=== PATIENT | male | born 1995 | race Caucasian/White ===

== ENCOUNTER 2018-04-24 01:00 | Emergency (ER) | payer MEDICAID ==
[~2018-04-24] VITALS: Ht 167.6 cm; Wt 70.3 kg
[2018-04-24 01:06] VITALS: BP_SYST 126
[2018-04-24 01:19] LABS: BILIRUBIN,URINE NEGATIVE (NEGATIVE); BLOOD, URINE 3+ (NEGATIVE); CLARITY/URINE CLOUDY (CLEAR); COLOR,URINE YELLOW (YELLOW); GLUCOSE,URINE NEGATIVE (NEGATIVE); KETONES,URINE NEGATIVE (NEGATIVE); LEUKOCYTE ESTERASE ,URINE NEGATIVE (NEGATIVE); NITRITE, URINE NEGATIVE (NEGATIVE); PROTEIN URINE NEGATIVE (NEGATIVE)
[2018-04-24 01:28] LABS: UROBILINOGEN,URINE >=8 (0.2-1.0)
[2018-04-24 01:38] LABS: RBC,URINE >100 /HPF (0-3)
[2018-04-24 01:40] LABS: BACTERIA,URINE FEW /HPF (None Seen); MUCUS,URINE None Seen /LPF (None Seen); URINE AMORPHOUS PHOSPHATES 2+ /HPF (None Seen); WBC,URINE 0-3 /HPF (0-3)
[2018-04-24 02:30] VITALS: BP_SYST 117
[2018-04-24] MEDS ORDERED: SULFAMETHOXAZOLE/TRIMETHOPR DS 1 TABLET PO ONE (02:30)
== END 2018-04-24 02:30 | disposition home or self-care (01) ==
LOC: SED 01:00
DX: R10.9 Unspecified abdominal pain (principal); R31.9 Hematuria, unspecified
CPT/HCPCS: 81000-TC; 87086; 99285

== ENCOUNTER 2018-09-24 20:26 | Emergency (ER) | payer MEDICAID ==
[~2018-09-24] VITALS: Ht 167.6 cm; Wt 70.3 kg
[2018-09-24 20:47] VITALS: BP_SYST 124
[2018-09-24] MEDS ORDERED: DIPH-TET-PERTUS Vaccine 0.5 ML VIAL (ADACEL) I.M. ONE (21:15)
[2018-09-24 22:02] VITALS: BP_SYST 118
== END 2018-09-24 22:02 | disposition home or self-care (01) ==
LOC: SED 20:26
DX: S61.210A Laceration without foreign body of right index finger without damage to nail, initial encounter (principal); W25.XXXA Contact with sharp glass, initial encounter; Y93.89 Activity, other specified; Y92.89 Other specified places as the place of occurrence of the external cause; Y99.8 Other external cause status
CPT/HCPCS: 73140-TC; 90715; 99284

== ENCOUNTER 2018-10-09 23:09 | Emergency (ER) | payer MEDICAID ==
[~2018-10-09] VITALS: Ht 167.6 cm; Wt 70.3 kg
[2018-10-09 23:28] VITALS: BP_SYST 114
[2018-10-10] MEDS ORDERED: HYDROcodone/ACETAMIN 5-325 MG TAB (NORCO/ VICODIN) PO ONE (00:15)
[2018-10-10 00:57] VITALS: BP_SYST 125
== END 2018-10-10 00:57 | disposition home or self-care (01) ==
LOC: SED 23:09
DX: S70.11XA Contusion of right thigh, initial encounter (principal); G43.909 Migraine, unspecified, not intractable, without status migrainosus; Z90.49 Acquired absence of other specified parts of digestive tract; W19.XXXA Unspecified fall, initial encounter; Y93.89 Activity, other specified; Y92.69 Other specified industrial and construction area as the place of occurrence of the external cause; Y99.8 Other external cause status
CPT/HCPCS: 73552; 99283

== ENCOUNTER 2022-06-26 06:57 | Emergency (ER) | payer SELFPAY ==
[~2022-06-26] VITALS: Ht 170.2 cm; Wt 72.6 kg
[2022-06-26 07:15] VITALS: BP_SYST 124
--- NOTE | 2022-06-26 07:15 | NUR ---
Patient to ER bed 7 to gown for evaluation. Side rails up. Report given to LISA RENO.
--- NOTE | 2022-06-26 07:30 | NUR ---
PT CAME IN FROM HOME C/O N/V X 4-5 DAYS WORSE WITH PO INTAKE, STATES HE FEELS DEHYDRATED AND IS HAVING ABD PAIN. PT IS AMBUALTORY, AAOX4, VSS
--- NOTE | 2022-06-26 07:35 | NUR ---
ER DR. ZAMBRANO AT THE BEDSIDE EXAMINING PT
[2022-06-26] MEDS ORDERED: HALOPERIDOL LACTATE 5 MG/ML VIAL IVP ONE (07:45)
[2022-06-26] MEDS ORDERED: NACL 0.9% 1,000 ML IV ONE (07:45)
[2022-06-26] MEDS ORDERED: ONDANSETRON HCL 4 MG/2 ML VIAL IVP ONE (07:45)
[2022-06-26] MEDS ORDERED: KETOROLAC TROMETHAMINE 15 MG VIAL IVP ONE (07:45)
--- NOTE | 2022-06-26 07:45 | NUR ---
# 20 gauge angiocath placed to LAC. Use of asceptic technique. Opsite placed over site. Blood return noted. Blood for lab drawn from site. Flushed with 10 cc of normal saline. No evidence of infiltration noted. Patient tolerated well.
[2022-06-26 08:11] LABS: BASOPHILS % (AUTO) 0.2 % (0.0-2.0); EOSINOPHILS % (AUTO) 0.2 % (0.0-4.0); HEMATOCRIT 43.8 % (36-54); HEMOGLOBIN 16.3 g/dL (14.0-18.0); LYMPHOCYTES # (AUTO) 1.4 K/uL (1.0-5.5); MEAN CORPUSCULAR HEMOGLOBIN 31 pg (27-31); MEAN CORPUSCULAR HGB CONC 37 % (32-36); MEAN CORPUSCULAR VOLUME 83 fL (79.0-98.0); MONOCYTES # (AUTO) 1.7 K/uL (0.0-1.0); NEUTROPHILS % (AUTO) 68.6 % (40.0-70.0); PLATELET COUNT (AUTO) 260 K/uL (130-430); RED BLOOD CELL COUNT(AUTO) 5.31 MIL/uL (4.2-6.2); RED CELL DISTRIBUTION WIDTH 12.3 % (9.0-15.0); WHITE BLOOD COUNT (AUTO) 10.2 K/uL (4.8-10.8)
[2022-06-26 08:23] LABS: CALCIUM 10.1 mg/dL (8.4-11.0); CREATININE 1.01 mg/dL (0.55-1.30); POTASSIUM 3.1 mmol/L (3.5-5.1)
[2022-06-26] MEDS ORDERED: FAMO-132 PO (08:27)
[2022-06-26] MEDS ORDERED: ONDA-8 TL (08:27)
[2022-06-26 08:28] LABS: ALBUMIN 4.8 g/dL (3.4-4.8)
[2022-06-26 08:36] LABS: BILIRUBIN,URINE NEGATIVE (NEGATIVE); CLARITY/URINE CLEAR (CLEAR); COLOR,URINE YELLOW (YELLOW); GLUCOSE,URINE NEGATIVE (NEGATIVE); KETONES,URINE 1+ (NEGATIVE); LEUKOCYTE ESTERASE ,URINE NEGATIVE (NEGATIVE); NITRITE, URINE NEGATIVE (NEGATIVE); PH,URINE 5.5 (5.0-8.0); PROTEIN URINE NEGATIVE (NEGATIVE); UROBILINOGEN,URINE 0.2 (0.2-1.0)
[2022-06-26 08:40] LABS: BLOOD, URINE TRACE (NEGATIVE)
[2022-06-26 08:56] LABS: BACTERIA,URINE FEW /HPF (None Seen); WBC,URINE 0-3 /HPF (0-3)
[2022-06-26 08:59] LABS: BARBITURATE, URINE NEGATIVE (NEG <=200); BENZODIAZEPINE, URINE NEGATIVE (NEG <=150); CANNABINOID, URINE POSITIVE (NEG <=50); COCAINE, URINE NEGATIVE (NEG <=150); METHAMPHETAMINES SCREEN,URINE NEGATIVE (NEG <=500); OPIATE, URINE NEGATIVE (NEG <=100); PHENCYCLIDINE SCREEN,URINE NEGATIVE (NEG <=25); UR TRICYCLIC ANTIDEPRESSANTS NEGATIVE (NEG <=300); URINE AMPHETAMINE NEGATIVE (NEG <=500); URINE METHADONE NEGATIVE (NEG <=200); URINE OXYCODONE SCREEN NEGATIVE (NEG <=100); URINE PROPOXYPHENE SCREEN NEGATIVE (NEG <=300)
[2022-06-26] MEDS ORDERED: POTA-197 PO (09:05)
[2022-06-26 09:15] VITALS: BP_SYST 124
--- NOTE | 2022-06-26 09:27 | NUR ---
Patient given written and verbal discharge instructions and verbalizes understanding. ER MD discussed with patient the results and treatment provided. Patient in stable condition. ID arm band removed. IV catheter removed intact and dressing applied, no active bleeding. Rx of PEPCID, ZOFRAN ODT AND K-DUR given. Patient educated on pain management and to follow up with PMD. Pain Scale 0/10. Opportunity for questions provided and answered. Medication side effect fact sheet provided.
== END 2022-06-26 09:15 | disposition home or self-care (01) ==
LOC: SED 06:57
DX: R11.10 Vomiting, unspecified (principal); F12.90 Cannabis use, unspecified, uncomplicated; R11.2 Nausea with vomiting, unspecified; E86.0 Dehydration; E87.6 Hypokalemia; I10 Essential (primary) hypertension; Z79.899 Other long term (current) drug therapy
CPT/HCPCS: 99284; 96374; 96375; 96361; 80307; 80053; 83690; 85025; 36415; 81000; J1630; J1885; J2405; J7030

== ENCOUNTER 2022-08-10 20:13 | Emergency (ER) | payer SELFPAY ==
[~2022-08-10] VITALS: Ht 170.2 cm; Wt 74.4 kg
[~2022-08-10 20:13] MED LIST: FAMO-132 PO; ONDA-8 TL; POTA-197 PO
[2022-08-10 20:25] VITALS: BP_SYST 122
--- NOTE | 2022-08-10 20:25 | NUR ---
Patient triaged and placed in waiting room. VSS and patient appears in no acute distress at this time. Accompanied by fam member, awaiting available bed, and MD notified of need for MSE.
[2022-08-10 21:52] LABS: HEMATOCRIT 47.3 % (36-54); HEMOGLOBIN 16.7 g/dL (14.0-18.0); MEAN CORPUSCULAR HEMOGLOBIN 29 pg (27-31); MEAN CORPUSCULAR HGB CONC 35 % (32-36); MEAN CORPUSCULAR VOLUME 83 fL (79.0-98.0); PLATELET COUNT (AUTO) 385 K/uL (130-430); RED BLOOD CELL COUNT(AUTO) 5.69 MIL/uL (4.2-6.2); WHITE BLOOD COUNT (AUTO) 24.6 K/uL (4.8-10.8)
[2022-08-10 22:01] LABS: CALCIUM 12.4 mg/dL (8.4-11.0); CREATININE 2.74 mg/dL (0.55-1.30); POTASSIUM 3.8 mmol/L (3.5-5.1)
[2022-08-10 22:07] LABS: ALBUMIN 5.6 g/dL (3.4-4.8); TOTAL BILIRUBIN 2.1 mg/dL (0.0-1.0)
--- NOTE | 2022-08-10 22:25 | NUR ---
Call pt name in the WR.No Answer.
--- NOTE | 2022-08-10 22:30 | NUR ---
Patient left without being seen.
[2022-08-10 22:35] LABS: BAND % (MANUAL) 3 % (0-6); BASOPHILS % (MANUAL) 0 % (0-2); EOSINOPHILS % (MANUAL) 0 % (0-7); LYMPHOCYTES % (MANUAL) 9 % (20-46); MONOCYTES % (MANUAL) 6 % (0-11)
[2022-08-10] MEDS ORDERED: ONDANSETRON HCL 4 MG/2 ML VIAL IVP ONE (23:00)
[2022-08-10] MEDS ORDERED: MORPHINE 2 MG/ML INJ. SYRINGE IVP ONE (23:00)
[2022-08-10] MEDS ORDERED: NACL 0.9% 1,000 ML IV ONE (23:00)
== END 2022-08-10 22:30 | disposition left against medical advice (07) ==
LOC: SED 20:13
DX: R10.9 Unspecified abdominal pain (principal); R11.10 Vomiting, unspecified; Z53.21 Procedure and treatment not carried out due to patient leaving prior to being seen by health care provider
CPT/HCPCS: 36415; 80053; 83690; 85007; 85027

== ENCOUNTER → 2022-08-11 | Emergency (ER) | payer SELFPAY ==
[~2022-08-11] VITALS: Ht 170.2 cm; Wt 74.8 kg
[2022-08-11 23:14] VITALS: BP_SYST 110
--- NOTE | 2022-08-11 23:18 | NUR ---
PT HERE C/O N/V, PT STATED THAT HE WAS HERE YESTERDAY FOR SAME REASON AND PER AFTER HEWAS GET DC HE WENT TO OTHER HOSPITAL. PT STATED THAT SYMPTOMS WAS NOT RELIEF. PT STATED THAT HE'S UNABLE TO SLEEP. PT AAOX4, NO SOB NOTED AND NOT IN ANY DISTRESS. PENDING MD GANT PMH:DENIES
--- NOTE | 2022-08-12 01:00 | NUR ---
PT CALLED FOR MSE AND NO ANSWER
--- NOTE | 2022-08-12 01:15 | NUR ---
PT CALLED MULTIPLE TIMES AND NO ANSWER
== END | disposition left against medical advice (07) ==
LOC: SED 23:10
DX: R11.10 Vomiting, unspecified (principal); R42 Dizziness and giddiness; Z53.21 Procedure and treatment not carried out due to patient leaving prior to being seen by health care provider

== ENCOUNTER 2023-05-16 12:17 | Emergency (ER) | payer MEDICAID ==
[~2023-05-16] VITALS: Ht 170.2 cm; Wt 77.1 kg
[2023-05-16 12:41] VITALS: BP_SYST 118; PULSE 68; RESP 20; TEMP 98; O2SAT 97
[2023-05-16] MEDS ORDERED: ONDANSETRON 4 MG ODT TAB PO ONE (12:45)
[2023-05-16 15:30] VITALS: BP_SYST 118; PULSE 68; RESP 20; TEMP 98; O2SAT 97
== END 2023-05-16 15:26 | disposition left against medical advice (07) ==
LOC: SED 12:17
DX: R11.2 Nausea with vomiting, unspecified (principal); Z53.21 Procedure and treatment not carried out due to patient leaving prior to being seen by health care provider
CPT/HCPCS: 99281; Q0162

== ENCOUNTER 2024-03-14 14:58 | Emergency (ER) | payer BC, MEDICAID ==
[~2024-03-14] VITALS: Ht 167.6 cm; Wt 74.8 kg
[2024-03-14 15:00] VITALS: BP_SYST 112; PULSE 48; RESP 18; TEMP 97.2; O2SAT 98
[2024-03-14 15:44] LABS: BASOPHILS % (AUTO) 0.3 % (0.0-2.0); HEMATOCRIT 40.3 % (36-54); LYMPHOCYTES # (AUTO) 1.4 K/uL (1.0-5.5); LYMPHOCYTES % (AUTO) 10.9 % (20.5-51.5); MEAN CORPUSCULAR HEMOGLOBIN 30 pg (27-31); MEAN CORPUSCULAR HGB CONC 35 % (32-36); MEAN CORPUSCULAR VOLUME 86 fL (79.0-98.0); MONOCYTES # (AUTO) 0.5 K/uL (0.0-1.0); MONOCYTES % (AUTO) 3.6 % (1.7-9.3); NEUTROPHILS # (AUTO) 10.9 K/uL (1.8-7.7); NEUTROPHILS % (AUTO) 85.2 % (40.0-70.0); PLATELET COUNT (AUTO) 270 K/uL (130-430); RED BLOOD CELL COUNT(AUTO) 4.71 MIL/uL (4.2-6.2); RED CELL DISTRIBUTION WIDTH 13.4 % (9.0-15.0); WHITE BLOOD COUNT (AUTO) 12.8 K/uL (4.8-10.8)
[2024-03-14] MEDS: NACL 0.9% 1,000 ML IV ONE (16:03)
[2024-03-14 16:15] LABS: BILIRUBIN,URINE 1+ (NEGATIVE); BLOOD, URINE NEGATIVE (NEGATIVE); CLARITY/URINE SL CLOUDY (CLEAR); COLOR,URINE YELLOW (YELLOW); GLUCOSE,URINE NEGATIVE (NEGATIVE); KETONES,URINE 2+ (NEGATIVE); LEUKOCYTE ESTERASE ,URINE NEGATIVE (NEGATIVE); NITRITE, URINE POSITIVE (NEGATIVE); PROTEIN URINE 1+ (NEGATIVE)
[2024-03-14 16:22] LABS: ALBUMIN 4.2 g/dL (3.4-4.8); BILIRUBIN,DIRECT 0.2 mg/dL (0.0-0.3); CALCIUM 9.6 mg/dL (8.4-11.0); CREATININE 0.82 mg/dL (0.55-1.30); POTASSIUM 4.3 mmol/L (3.5-5.1); TOTAL BILIRUBIN 1.5 mg/dL (0.0-1.0); TOTAL PROTEIN, SERUM 8.2 g/dL (6.4-8.3)
[2024-03-14 16:30] LABS: BARBITURATE, URINE NEGATIVE (NEG <=200); BENZODIAZEPINE, URINE NEGATIVE (NEG <=150); CANNABINOID, URINE POSITIVE (NEG <=50); COCAINE, URINE NEGATIVE (NEG <=150); METHAMPHETAMINES SCREEN,URINE NEGATIVE (NEG <=500); OPIATE, URINE NEGATIVE (NEG <=100); PHENCYCLIDINE SCREEN,URINE NEGATIVE (NEG <=25); UR TRICYCLIC ANTIDEPRESSANTS NEGATIVE (NEG <=300); URINE AMPHETAMINE NEGATIVE (NEG <=500); URINE METHADONE NEGATIVE (NEG <=200); URINE OXYCODONE SCREEN NEGATIVE (NEG <=100)
[2024-03-14 16:33] LABS: BACTERIA,URINE MODERATE /HPF (None Seen); MUCUS,URINE 3+ /LPF (None Seen); WBC,URINE 20-50 /HPF (0-3)
[2024-03-14] MEDS: HALOPERIDOL LACTATE 5 MG/ML VIAL IM ONE (16:48)
[2024-03-14] MEDS ORDERED: SULF1TAB48 PO (18:24)
[2024-03-14] MEDS ORDERED: ONDA-8 TL (18:24)
[2024-03-14 18:52] VITALS: BP_SYST 118; PULSE 68; RESP 18; TEMP 97.6; O2SAT 96
== END 2024-03-14 18:52 | disposition home or self-care (01) ==
LOC: SED 14:58
DX: R11.10 Vomiting, unspecified (principal); N39.0 Urinary tract infection, site not specified; F12.90 Cannabis use, unspecified, uncomplicated; Z79.899 Other long term (current) drug therapy
CPT/HCPCS: 99284; 96374; 96361; 80307; 80076; 80048; 83690; 85025; 87086; 36415; 93005; 81000; 81001; 81015; J1630; J7030

== ENCOUNTER 2024-04-26 11:29 | Emergency (ER) | payer MEDICAID ==
[~2024-04-26] VITALS: Ht 167.6 cm; Wt 72.6 kg
[~2024-04-26 11:29] MED LIST changes: +SULF1TAB48 PO
[2024-04-26 11:48] VITALS: BP_SYST 109; PULSE 73; RESP 22; TEMP 98.3; O2SAT 95
[2024-04-26 12:19] LABS: BASOPHILS % (AUTO) 0.1 % (0.0-2.0); HEMATOCRIT 43.9 % (36-54); HEMOGLOBIN 15.2 g/dL (14.0-18.0); LYMPHOCYTES # (AUTO) 0.9 K/uL (1.0-5.5); LYMPHOCYTES % (AUTO) 6.2 % (20.5-51.5); MEAN CORPUSCULAR HEMOGLOBIN 30 pg (27-31); MEAN CORPUSCULAR HGB CONC 35 % (32-36); MEAN CORPUSCULAR VOLUME 87 fL (79.0-98.0); MONOCYTES # (AUTO) 0.5 K/uL (0.0-1.0); MONOCYTES % (AUTO) 3.7 % (1.7-9.3); NEUTROPHILS # (AUTO) 13.5 K/uL (1.8-7.7); PLATELET COUNT (AUTO) 258 K/uL (130-430); RED BLOOD CELL COUNT(AUTO) 5.04 MIL/uL (4.2-6.2)
[2024-04-26 12:35] LABS: PROTHROMBIN TIME 10.6 SECS (9.5-12.5)
[2024-04-26 12:49] LABS: ACETONE, SERUM NEGATIVE (NEGATIVE); ALBUMIN 4.3 g/dL (3.4-4.8); ALCOHOL, BLOOD < 3 mg/dL (<10); AMYLASE 32 U/L (0-100); ANION GAP 13 (5-15); BILIRUBIN,DIRECT 0.2 mg/dL (0.0-0.3); CALCIUM 9.8 mg/dL (8.4-11.0); CARBON DIOXIDE 25 mmol/L (23-29); CHLORIDE 102 mmol/L (98-107); CREATININE 1.15 mg/dL (0.55-1.30); GFR AFRICAN AMERICAN 99 mL/min (>90); GFR NON AFRICAN-AMERICAN 82 mL/min (>90); GLUCOSE 144 mg/dL (74-106); LIPASE 15 U/L (16-77); POTASSIUM 4.2 mmol/L (3.5-5.1); SODIUM SERUM 140 mmol/L (136-145); TOTAL BILIRUBIN 1.2 mg/dL (0.0-1.0); TOTAL PROTEIN, SERUM 8.3 g/dL (6.4-8.3); UREA NITROGEN, BLOOD 15 mg/dL (8-21)
[2024-04-26] MEDS ORDERED: METO-290 PO (13:15)
[2024-04-26] MEDS ORDERED: OMEP20CA15 PO (13:15)
[2024-04-26 13:32] VITALS: BP_SYST 120; PULSE 78; RESP 16; TEMP 99.2; O2SAT 96
[2024-04-26 23:09] LABS: ASPARTATE AMINOTRANSFERASE 12 U/L (10-37)
[2024-04-26 23:10] LABS: ALANINE AMINOTRANSFERASE 19 U/L (12-78)
== END 2024-04-26 13:33 | disposition home or self-care (01) ==
LOC: SED 11:29
DX: R10.84 Generalized abdominal pain (principal); R11.2 Nausea with vomiting, unspecified; G43.909 Migraine, unspecified, not intractable, without status migrainosus; Z79.899 Other long term (current) drug therapy; Z79.2 Long term (current) use of antibiotics
CPT/HCPCS: 99284; 74176; 80076; 80048; 82009; 82150; 83690; 85025; 85610; 85730; 36415; 83605; G0482

== ENCOUNTER 2024-06-11 19:30 | Emergency (ER) | payer MEDICAID ==
[~2024-06-11] VITALS: Ht 172.7 cm; Wt 72.6 kg
[~2024-06-11 19:30] MED LIST changes: +METO-290 PO; +OMEP20CA15 PO
[2024-06-11 20:13] VITALS: BP_SYST 118; PULSE 61; RESP 24; TEMP 101.2; O2SAT 96
[2024-06-11 20:28] LABS: ALBUMIN 4.7 g/dL (3.4-4.8); CALCIUM 10.5 mg/dL (8.4-11.0); CREATININE 1.19 mg/dL (0.55-1.30); TOTAL PROTEIN, SERUM 8.7 g/dL (6.4-8.3)
[2024-06-11 20:30] LABS: BASOPHILS # (AUTO) 0.1 K/uL (0.0-0.2); BASOPHILS % (AUTO) 0.3 % (0.0-2.0); HEMOGLOBIN 14.9 g/dL (14.0-18.0); LYMPHOCYTES % (AUTO) 5.2 % (20.5-51.5); MEAN CORPUSCULAR HEMOGLOBIN 30 pg (27-31); MEAN CORPUSCULAR HGB CONC 35 % (32-36); MEAN CORPUSCULAR VOLUME 86 fL (79.0-98.0); MONOCYTES # (AUTO) 0.3 K/uL (0.0-1.0); MONOCYTES % (AUTO) 1.8 % (1.7-9.3); NEUTROPHILS # (AUTO) 18.4 K/uL (1.8-7.7); NEUTROPHILS % (AUTO) 92.7 % (40.0-70.0); PLATELET COUNT (AUTO) 338 K/uL (130-430); RED BLOOD CELL COUNT(AUTO) 5.01 MIL/uL (4.2-6.2); WHITE BLOOD COUNT (AUTO) 19.8 K/uL (4.8-10.8)
[2024-06-11 20:37] LABS: BILIRUBIN,DIRECT 0.2 mg/dL (0.0-0.3)
[2024-06-11 21:14] LABS: INR 1.1 (0.80-1.20); PROTHROMBIN TIME 11.1 SECS (9.5-12.5)
[2024-06-11] MEDS ORDERED: METO-290 PO (21:39)
[2024-06-11 21:59] LABS: INFLUENZA TYPE A Negative (NEGATIVE); INFLUENZA TYPE B NEGATIVE (NEGATIVE)
[2024-06-11] MEDS: HALOPERIDOL LACTATE 5 MG/ML VIAL IM ONE (22:08)
[2024-06-11 22:31] VITALS: BP_SYST 121; PULSE 53; RESP 22; TEMP 97.9; O2SAT 95
== END 2024-06-11 22:31 | disposition home or self-care (01) ==
LOC: SED 19:30
DX: F12.188 Cannabis abuse with other cannabis-induced disorder (principal); R11.2 Nausea with vomiting, unspecified; R10.9 Unspecified abdominal pain; Z20.822 Contact with and (suspected) exposure to COVID-19; Z71.6 Tobacco abuse counseling; G43.909 Migraine, unspecified, not intractable, without status migrainosus; Z79.899 Other long term (current) drug therapy; Z79.2 Long term (current) use of antibiotics
CPT/HCPCS: 99284; 71045; 87426; 80076; 80048; 82150; 83690; 85025; 85610; 85730; 36415; 74018; 96372; 83605; 87804 ×2; 82397; J1630